=== PATIENT | female | born 1955 | race Caucasian/White ===

== ENCOUNTER 2019-01-26 05:34 | Day surgery (SDC) | payer BC, OTHER ==
[2019-01-18 08:43] LABS: URINE BILIRUBIN NEGATIVE (Negative); URINE BLOOD TRACE (Negative); URINE CLARITY CLEAR; URINE COLOR YELLOW; URINE GLUCOSE-RANDOM* NEGATIVE (Negative); URINE KETONES NEGATIVE (Negative); URINE LEUKOCYTES-REFLEX NEGATIVE (Negative); URINE NITRITE-REFLEX NEGATIVE (Negative); URINE PROTEIN (DIPSTICK) NEGATIVE (Negative); URINE UROBILINOGEN 0.2 E.U./dl (0.2-1.0)
[2019-01-18 08:49] LABS: HEMATOCRIT 44.1 % (37.0-47.0); HEMOGLOBIN 15.1 gm/dL (12.0-15.0); MCH 30.6 pg (26.0-34.0); MCHC 34.2 g/dL (28.0-37.0); MCV 89.3 fL (80.0-100.0); RBC 4.93 mil/uL (4.20-5.00); RDW 12.9 % (10.5-14.5); WBC 9.8 thou/uL (4.0-11.0)
[2019-01-18 08:55] LABS: PROTIME 10.1 Seconds (9.3-11.4)
[2019-01-18 09:02] LABS: ALBUMIN 4.3 g/dL (3.4-5.0); CALCIUM 10.1 mg/dL (8.5-10.1); CREATININE 0.8 mg/dL (0.6-1.0); POTASSIUM 4.4 mmol/L (3.5-5.1)
--- NOTE | 2019-01-18 09:40 | EKG ---
[address] [address] ELECTROCARDIOGRAM REPORT Name: LAURIE WALSH [place] #: [place] [facility] [place]#: [id number] ������������������ Admission: ������������������ Attend Phys: Reji Zepeda MD Discharge: ������������������ Date of : 57 Report #: [id number] ����������������������������������������������������������������� [id number] THIS REPORT FOR: //name// [facility] Test Date: 2019-01-18 Test Time: 08:44:34 Pat Name: LAURIE WALSH Department: Room: Gender: F Chief Enterprise Architect: PARISA THOMAS : 1955 Requested By: Reji Zepeda Order Number: [id number] MD: Henok Casper Measurements Intervals [place] Rate: 72 P: 70 MO: 166 QRS: 18 QRSD: 87 T: 32 QT: 372 QTc: 408 Interpretive Statements Sinus rhythm No previous ECG available for comparison Electronically Signed On 01-18-2019 9:39:48 CDT by Henok Casper [email or web address] ��������������������������������������������� <ELECTRONICALLY SIGNED> ���������������������������������������� By: Henok Casper MD ��������������������������������������������� 01/18/19 0939 0844 [id number] Henok Casper MD /EPI
[~2019-01-26] VITALS: Ht 172.7 cm; Wt 106.6 kg
--- NOTE | ~2019-01-26 | O ---
[facility] [place] [address] OPERATIVE REPORT Name: LAURIE WALSH Room #: 431-P [facility] M.R.#: [id number] Admission: 01/26/19 ������������������ Attend Phys: Reji Zepeda MD Discharge: ������������������ Date of : 57 Report #: [id number] THIS REPORT FOR: //name// CC: Anderson Eduard Zepeda DATE OF SERVICE: 01/26/2019 PREOPERATIVE DIAGNOSIS: Left knee valgus osteoarthritis. POSTOPERATIVE DIAGNOSIS: Left knee valgus osteoarthritis. PROCEDURE: Left total knee arthroplasty with NAVIO robotic assistance. SURGEON: Reji Zepeda MD ANESTHESIA: LMA with adductor canal block. IMPLANTS: [employer] size 6 Journey 2 BCS Oxinium femur, a size 5 tibia, size 32 patella and a size 9 highly constrained polyethylene. TOURNIQUET TIME: 68 minutes. ESTIMATED BLOOD LOSS: 25 mL. COMPLICATIONS: None. SPECIMENS: None. CONDITION UPON LEAVING THE OPERATING ROOM: Stable. INDICATIONS FOR PROCEDURE: The patient is a 63-year-old female with severe left knee valgus osteoarthritis. She failed conservative measures for this and after discussion with her, she elected for left total knee arthroplasty. DESCRIPTION OF PROCEDURE: Risks, benefits, alternatives, complications were discussed in detail with the patient including but not limited to risk of anesthesia, risk of damage to nerves, arteries, blood vessels; risk for infection, bleeding, risk for continued knee pain, need for reoperation. Informed consent was obtained from the patient. Left knee was appropriately marked in the preoperative holding area. IV Ancef was given for preoperative antibiotics. Adductor canal block was placed by Anesthesia. She was brought to the operating room and placed in the supine position on the operating room table. LMA anesthesia was induced without complication. Tourniquet was placed on the left thigh. Left lower extremity was prepped and draped in normal sterile fashion. Timeout was performed properly identifying the patient and [address] [address] OPERATIVE REPORT Name: LAURIE WALSH Room #: 431-P [facility].#: [id number] Admission: 01/26/19 ������������������ Attend Phys: Reji Zepeda MD Discharge: ������������������ Date of : 57 Report #: [id number] procedure as well as the instrumentation and implants. All in the operating room were in agreement. Left lower extremity was exsanguinated, tourniquet was inflated. Tourniquet time was 68 minutes. Standard midline approach to knee was made with 10 blade through the skin. Dissection was taken down sharply to the fascia and deep flaps were developed medially and laterally. Fresh 10 blade was used to make a medial parapatellar arthrotomy and the knee was inspected. There was severe valgus osteoarthritic change. It was decided to proceed with total knee arthroplasty. Reference pins were placed in the femur and the tibia and the knee was digitally mapped with ImaCor robotic system. It was sized to size 6 femur and size 5 tibia with size 10 polyethylene. After acceptance of the intraoperative plan, the distal femoral cut was made with a NAVIO timothy. The chamfer cutting block for a size 6 femur was then placed on the femur and chamfer cuts were made. After this, attention was turned to the tibia. The remainder of the menisci were removed with Bovie cautery. Tibial resection guide was pinned in place using the ImaCor robotic system for placement and the tibial resection was made. After this, flexion and extension gaps were checked and found to have good balance laterally; however, medially she was loose and it was felt that we did not want to go chasing this medial instability secondary to her valgus knee. We will make up for this with a constrained liner. Tibia was sized, found to be a size 5, and size 5 tibial trial was placed and punched. Size 6 femoral trial was placed and the box cut was made. This was then trialed with a size 9 highly constrained polyethylene. Knee was taken through range of motion, found to be stable, found to have a millimeter of laxity both medially and laterally throughout range of motion both digitally as well as manually. A 9 mm was taken off the posterior surface of the patella and a size 32 patellar trial button was placed. Knee was taken through range of motion, found to be stable, found to have good balance and patellar tracking. After this, trial components were removed. Bony ends were thoroughly irrigated with normal saline and final size 5 tibia, size 6 Journey 2 BCS Oxinium femur and a size 32 patella were cemented in place using standard cementation technique. While the cement cured, a periarticular injection consisting of morphine, ropivacaine, epinephrine and Toradol was placed around the knee joint capsule. After the cement cured, tourniquet was deflated. Hemostasis was obtained with Bovie cautery. Final size 9 highly constrained polyethylene was placed. A gram of vancomycin was placed deep in the joint. The fascia was closed with 0 Vicryl, skin was closed with 2-0 Vicryl, 3-0 Monocryl. Dermabond and a BIMAL dressing were applied. The patient tolerated this procedure well and went to the recovery room under the care of Anesthesia postoperatively. ��������������������������������������������� ���������������������������������������� By: ��������������������������������������������� 1254 1629 Reji Zepeda MD /nt
[~2019-01-26 05:34] MED LIST: BENADRYL25 MG PO; BENICAR40 MG PO; CELEBREX 200 M200 M1 PO; CYMBALTA30 MG PO; SINGULAIR 10 MG10 M1 PO; SPIRONOLACT/HCT1 TA1 PO; VENTOLIN HFA 1818 GM INH
[2019-01-26 08:42] VITALS: BP 144/81
[2019-01-26 13:50] VITALS: BP 113/71
--- NOTE | 2019-01-26 15:09 | NUR ---
PT ADMITTED RELTED TO RIGHT TKR. CM REVIEWED CHART AND SPOKE WITH CARE TEAM. CM MET WITH PT AT BEDSIDE THIS DAY. CM ROLE INTRODUCED. PT INDICATED SHE LIVES ALONE IN AN APARTMENT WITH NO STEPS TO ENTER AND NO STEPS INSIDE. 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 PT INDICATED SHE IS ESTABLISHED WITH OP PT THROUGH [facility] UPON DISCHARGE. FWW WAS ORDERED THROUGH [employer] AND IT WAS DELIVERED. PT INDICATED THAT SHE ANITIPATES RETURNING HOME THIS DAY. NO OTHER CM INTERVENTION INDICATED. CASE CLOSED.
[2019-01-26] MEDS ORDERED: ASPIR 8181 MG PO (17:01)
[2019-01-26] MEDS ORDERED: HYDROCODON-ACE1 EAC7 PO (17:02)
[2019-01-26] MEDS ORDERED: MS CONTIN15 MG PO (17:02)
[2019-01-26] MEDS ORDERED: NEURONTIN 300300 M1 PO (17:03)
[2019-01-26 17:45] VITALS: BP 113/71
--- NOTE | 2019-01-26 17:49 | NUR ---
PT ADMITTED FROM [facility] AT 1345 ALERT AND IN NO ACUTE DISTRESS. PHYSICAL THERAPIST IN TO SEE PT SOON AFTER ARIVAL. AMBULATED IN THE HALLS W/ WALKER AND DID WELL. UP IN THE CHAIR FOR COUPLE OF HOURS. WALKED THE HALLS AGAIN W/ SISTER AND TOLERATED WELL. VOIDED IN THE BR. EATING DINNER NOW AND WILL DISCHARGE HOME AFTER EATING.
== END 2019-01-26 18:46 | disposition home or self-care (01) ==
LOC: OR 05:34 → TBA 05:35 → OR 05:37 → 4E 13:45 → ENTRNSPT 18:37 → OR 18:46
PROVIDERS: Orthopaedic Surgery
DX: M17.12 Unilateral primary osteoarthritis, left knee (principal); I10 Essential (primary) hypertension; J45.909 Unspecified asthma, uncomplicated; F32.9 Major depressive disorder, single episode, unspecified; K21.9 Gastro-esophageal reflux disease without esophagitis; F41.9 Anxiety disorder, unspecified; Z90.49 Acquired absence of other specified parts of digestive tract; Z98.890 Other specified postprocedural states; Z88.8 Allergy status to other drugs, medicaments and biological substances; Z79.82 Long term (current) use of aspirin; Z79.899 Other long term (current) drug therapy
CPT/HCPCS: 10783; 50010; 50101; 50415; 50954; 51130; 51225; 53000; 53078; 54118; 55372; 56527; 56528; 57095; 57103; 57110; 57127; 62110; 62900; 70005